=== PATIENT | female | born 1945 | race Caucasian/White ===

== ENCOUNTER 2017-02-26 10:16 | Emergency (ER) | payer MEDICARE ==
[~2017-02-26] VITALS: Ht 157.5 cm; Wt 86.2 kg
[2017-02-26] MEDS ORDERED: TDAP [DIPH/PERTUSSIS/TET] 0.5 ML VIAL IM ONE ×2 (10:34→11:00)
[2017-02-26] MEDS ORDERED: IBUPROFEN 600 MG TABLET PO ONE ×2 (11:46→12:00)
[2017-02-26 11:55] VITALS: BP 110/72
== END 2017-02-26 11:56 | disposition home or self-care (01) ==
LOC: ER 10:17
DX: S52.121A Displaced fracture of head of right radius, initial encounter for closed fracture (principal); S00.81XA Abrasion of other part of head, initial encounter; W01.0XXA Fall on same level from slipping, tripping and stumbling without subsequent striking against object, initial encounter; Y93.89 Activity, other specified; Y92.89 Other specified places as the place of occurrence of the external cause; Y99.8 Other external cause status; I10 Essential (primary) hypertension; Z88.8 Allergy status to other drugs, medicaments and biological substances
CPT/HCPCS: 73080-TC; 90715; A4606; A6402; Z7610